=== PATIENT | female | born 1990 | race Caucasian/White ===

== ENCOUNTER 2024-10-10 06:11 | Day surgery (SDC) | payer OTHER, SELFPAY ==
[2024-10-10] VITALS (8 sets, daily range): BP systolic 119–131; BP diastolic 73–84; PULSE 64–75; RESP 14–16; TEMP 36.6–36.7; O2SAT 96–100; BMI 31.0
[2024-10-10] MEDS: BUPIVACAINE 0.5% 30 ML INJECTION (07:00)
[2024-10-10] MEDS: LIDOCAINE 1% MDV INJECTION (07:00)
[2024-10-10] MEDS: ETHYL CHLORIDE 1 APPLICATION 1 APPLIC TOPICAL (07:00)
[2024-10-10] MEDS: NEOMYCIN/BACITRACIN/POLYMYXIN B 1 APPLIC TOPICAL (07:52)
--- NOTE | 2024-10-10 07:53 | PM.ORPRC ---
Procedure Note Date of procedure: 10/10/24 Procedure: PREOPERATIVE DIAGNOSIS: 1. Right index finger dorsal benign mass/cyst near the DIP joint POSTOPERATIVE DIAGNOSIS: 1. Right index finger dorsal benign mass/cyst near the DIP joint PROCEDURE: 1. Right index finger dorsal benign mass/cyst open excision SURGEON: Zechariah Oneal MD. DOUBLE END CHUCKING MACHINE OPERATOR: David Curran PA-C - Of note, an scheduling assistant was critical for this case to aid in patient positioning, tissue retraction, limb manipulation/positioning, and closure. ANESTHESIA: Local anesthetic (50:50 mixture of 1% lidocaine plain and 0.5% marcaine plain) IMPLANTS: None TOURNIQUET: 10 minutes of digital tourni-cot SPECIMENS: Dorsal right index finger mass/cyst COMPLICATIONS: None evident INDICATIONS: The patient is a pleasant 34-year-old female who has experienced right index finger dorsal mass/cyst development over the course of the last 1 year. It has progressively gotten larger and is now painful when pressure is applied to it. Nonoperative management has been tried but unsuccessful. Given the failure of nonoperative management, and how this affects daily life, surgery was recommended. DESCRIPTION OF PROCEDURE: Following a thorough discussion of risks, benefits, and alternatives consent was obtained and the operative extremity was marked. The patient was brought to the operating room and placed supine on the operating table. No antibiotics were administered as this was planned to be a local case only. Proper time-out was performed identifying proper patient, site, and procedure. The operative extremity was prepped and draped in the appropriate sterile fashion using ChloraPrep. The limb was exsanguinated and the tourniquet inflated. A transverse incision was made overlying the dorsal aspect of the right index finger D IP joint near the distal phalangeal extensor crease. Sharp incision through skin and blunt dissection the subcutaneous tissue allowed us to identify the extensor tendon and protect this. Working slightly distal, a small mass/cyst was encountered and mobilized from both the deep and superficial tissues. Upon its excision with tenotomy scissors and bipolar cautery, it was sent for permanent pathology. No clear stalk was identified going deep to the joint. It did seem to have its own shell and was distinctly separate from the dermis. At this stage, the tourni-cot was removed and hemostasis achieved. Closure was performed with 4-O nylon. Soft dressings were applied, and the patient was awoken/transferred to the recovery room in stable condition. PLAN: 1. Encourage elevation of the operative extremity. 2. Range of motion of the operative extremity/digits as tolerated. 3. Ibuprofen, acetaminophen and/or oxycodone as needed for pain. 4. Follow up with PA visit in 12-16 days for wound check and suture removal.
== END 2024-10-10 08:07 | disposition home or self-care (01) ==
LOC: OR 06:11
PROVIDERS: PCP Family Medicine; Visit Provider Orthopaedic Surgery Sports Medicine
PROC: (CPT 26160; principal; 2024-10-10 07:15)
DX: M67.441 Ganglion, right hand (principal)
CPT/HCPCS: 26160; 88305; 88341; 88342; J2003; J0665